=== PATIENT | male | born 1965 | race Caucasian/White ===

== ENCOUNTER 2023-08-23 06:45 | Day surgery (SDC) | payer BC ==
[~2023-08-23] VITALS: Ht 170.2 cm; Wt 76.2 kg
[2023-08-23] MEDS ORDERED: MEPERIDINE 100 MG INJ. 100 MG/ML VIAL ONE (08:04)
[2023-08-23] MEDS ORDERED: MIDAZOLAM HCL 5 MG/5 ML VIAL ONE (08:04)
[2023-08-23 10:00] VITALS: O2SAT 97
[2023-08-23 15:09] VITALS: BP_SYST 122; PULSE 66; RESP 16
== END 2023-08-23 10:10 | disposition home or self-care (01) ==
LOC: SDS 06:45 → SMU 06:46 → SDS 10:10
PROVIDERS: ATTEND Internal Medicine Gastroenterology
DX: R19.4 Change in bowel habit (principal); D12.0 Benign neoplasm of cecum; K57.30 Diverticulosis of large intestine without perforation or abscess without bleeding; K64.8 Other hemorrhoids; E78.5 Hyperlipidemia, unspecified; Z79.899 Other long term (current) drug therapy
CPT/HCPCS: 45385; 82948; 88305; 99152; G0378; J2250; J2175; 45384